=== PATIENT | female | born 1955 | race Caucasian/White ===

== ENCOUNTER → 2017-07-11 | Outpatient (CLI) | payer OTHER ==
--- NOTE | 2017-07-11 14:30 | KCIC ---
EXAM: Brain MRI without contrast. HISTORY: Memory deficiency. Right upper extremity weakness. TECHNIQUE: Multiplanar, multisequence magnetic resonance imaging of the brain was performed without contrast. COMPARISON: 11/02/2015 FINDINGS: There is no restricted diffusion to suggest acute or subacute infarction. There is no susceptibility effect to suggest hemorrhage. There is no mass effect or midline shift. There is no hydrocephalus. There is a focus of T2/FLAIR hyperintensity within the posterior right frontal lobe cortex and subcortical white matter at the vertex, likely due to a chronic infarct. There is mild age-appropriate cerebral volume loss. The orbits are unremarkable. There is mild right maxillary sinus predominant paranasal sinus mucosal thickening. The mastoid air cells are clear. There are normal flow voids within the cerebral vessels. IMPRESSION: 1. No acute intracranial finding. 2. Chronic infarct within the posterior right frontal cortex and subcortical white matter. 3. Mild age-appropriate cerebral volume loss. Electronically signed by: Ariela Duams MD (07/11/2017 2:27 PM) [email or web address]
--- NOTE | 2017-07-11 14:51 | KCIC ---
EXAM: Cervical spine MRI without contrast. HISTORY: Memory deficiency. Right upper extremity weakness. TECHNIQUE: Multiplanar, multisequence magnetic resonance imaging of the cervical spine was performed without contrast. COMPARISON: None. FINDINGS: There is slight reversal of cervical lordosis, with kyphosis centered at C5. There is mild anterolisthesis of C3 on C4 and minimal anterolisthesis of C7 on T1. There is degenerative endplate remodeling with disc space narrowing, osteophytosis and Schmorl's node formation primarily at C5-C6 and C6-C7. There is a minimal superior endplate depression secondary to a Schmorl's node at T2. No spinal cord lesion is seen. The skull base and posterior fossa are unremarkable. There are few small hemangiomas. At C2-C3, there is minimal right posterior lateral endplate remodeling. There is mild left greater than right facet arthropathy. There is mild right foraminal stenosis. At C3-C4, there is minimal endplate remodeling. There is mild right and left facet arthropathy. There is mild right foraminal stenosis. At C4-C5, there is a posterior central disc protrusion superimposed on a disc bulge and endplate remodeling. There is mild bilateral facet arthropathy. There is there is mild left foraminal stenosis. There is mild central canal stenosis, measuring 8.1 mm in anterior posterior dimension. At C5-C6, there are right greater than left paracentral to foraminal disc osteophyte complexes superimposed on a disc bulge and endplate osteophytosis. There is mild facet arthropathy. There is uncovertebral arthropathy. There is moderate to severe right and severe left foraminal stenosis. There is deformation of the spinal cord and mild to mild central canal stenosis measuring 8.1 mm in anterior posterior dimension. At C6-C7, there is a right lateral recess to foraminal disc protrusion superimposed on diffuse disc bulge and endplate osteophytosis. There is uncovertebral arthropathy. There is severe right and moderate left foraminal stenosis. At C7-T1, there is a disc bulge. There is mild left facet arthropathy. There is mild bilateral foraminal stenosis. At T1-T2, there is a right lateral recess disc protrusion. There is no stenosis. IMPRESSION: Multilevel degenerative changes of cervical spine, described in detail above. This results in mild right foraminal stenosis at C2-C3 and C3-C4, mild left foraminal and central canal stenosis at C4-C5, moderate to severe right and severe left foraminal and mild central canal stenosis at C5-C6, severe right and moderate left foraminal stenosis at C6-C7, and mild bilateral foraminal stenosis at C7-T1. Electronically signed by: Ariela Dumas MD (07/11/2017 2:48 PM) [email or web address]
== END | disposition home or self-care (01) ==
LOC: KCIC MRI 13:38
PROVIDERS: ATTEND Nurse Practitioner Adult Health
DX: M48.02 Spinal stenosis, cervical region (principal); R53.1 Weakness
CPT/HCPCS: 70551; 72141

== ENCOUNTER → 2018-09-30 | Outpatient (CLI) | payer OTHER ==
--- NOTE | 2018-09-30 17:02 | KCIC ---
EXAM: AP, lateral and lumbosacral spot views with bilateral oblique views of the lumbar spine DATE: 09/30/2018 12:00 AM INDICATION: Low back pain increasing over the last week. COMPARISON: No Prior FINDINGS: For the purposes of this report there are 5 nonrib-bearing lumbar-type vertebral bodies. Diffusely decreased bone mineral density. Posterior decompression and fusion is seen from L4-S1 with interbody fusion L5-S1. No definite hardware complication. Proximally 20% height loss of the L2 vertebral body is seen, age-indeterminate. No spondylolisthesis. Moderate to severe L3-4 vertebral disc height loss. Mild T12-L1 intervertebral disc height loss. Severe left hip joint osteophytes arthritis with subchondral cystic change and joint space effacement. IMPRESSION: 1. Posterior and interbody fusion L4-S1 without definite hardware complication. This can be compared to prior examinations if available to determine stability. 2. Multilevel degenerative changes as above 3. L2 vertebral body height loss, may represent age-indeterminate compression fracture. Electronically signed by: Gregg Thompson MD (09/30/2018 4:59 PM) [email or web address]
== END | disposition home or self-care (01) ==
LOC: KCIC 14:08
PROVIDERS: ATTEND Internal Medicine
DX: M47.896 Other spondylosis, lumbar region (principal); M16.12 Unilateral primary osteoarthritis, left hip
CPT/HCPCS: 72110